=== PATIENT | male | born 1935 | race Caucasian/White ===

== ENCOUNTER → 2024-07-30 | Outpatient (CLI) | payer MEDICARE ==
[2024-07-31 02:14] LABS: HGB 13.7 g/dL (13.0-17.0); MCH 31.6 pg (27.0-32.0); MCHC 31.9 g/dL (32.0-37.0); MCV 99.3 FL (80.0-97.0); Mean Platelet Volume 10.3 FL (9.5-12.2); NRBC Per 100 WBC 0 X 10*3/uL (0.00-0.01); Platelet Count 152 X 10*3/uL (140-440); RBC 4.33 X 10*6/uL (4.40-5.60); RDW 13.3 % (11.5-14.5); WBC 5.73 X 10*3/uL (4.50-10.00)
[2024-07-31 02:49] LABS: BUN/Creat Ratio 20.67 Ratio (12.00-20.00); Calcium 9.3 mg/dL (8.7-10.3); Carbon Dioxide 23.2 mmol/L (21.6-31.8); Chloride 108 mmol/L (96-109); Glucose 78 mg/dL (70-110); Potassium 5.1 mmol/L (3.5-5.5); Sodium 142 mmol/L (135-145)
== END | disposition home or self-care (01) ==
LOC: LABWHC1 15:30
PROVIDERS: ATTEND Internal Medicine Cardiovascular Disease
DX: I48.11 Longstanding persistent atrial fibrillation (principal)
CPT/HCPCS: 36415; 80048; 84443; 85027